=== PATIENT | female | born 1985 | race Hispanic/Latino ===

== ENCOUNTER 2020-01-02 11:54 | Day surgery (SDC) | payer OTHER ==
--- NOTE | 2020-01-01 16:40 | History and Physical Report ---
History of Present Illness Date of examination: 01/01/20 Chief complaint: retained products of conception History of present illness: 34 yo with known miscarriage presenting for definitive management with D&C for retained products of conception. Denies vaginal bleeding. No further p assage of tissue with cytotec x 3 attempts. Past History Past Medical History: no pertinent history Past Surgical History: no surgical history Family/Genetic History: none Social history: no significant social history - Obstetrical History : 1 Para: 1 Hx # Term Pregnancies: 1 Spontaneous Abortions: 1 Medications and Allergies Allergies Allergy/AdvReac Type Severity Reaction Status Date / Time shrimp Allergy Vomiting Verified 01/01/20 17:01 Home Medications Medication Instructions Recorded Confirmed Last Taken Type No Known Home Medications [No 01/01/20 01/01/20 Unknown History Reported Home Medications] Review of Systems All systems: negative (expect HPI) - Physical Exam Abdomen: Positive: normal appearance, normal bowel sounds Results Result Diagrams: 01/02/20 12:30 01/02/20 12:30 HCG 199.2 All other labs normal. Assessment and Plan - Patient Problems (1) Retained products of conception Current Visit: No Status: Acute Plan to address problem: --To OR for ultrasound guided D&C for retained products of conception --No IUP identified. c/w 2.0 x 1.6 x 2.6 cm mass c/w retained products --Questions solicited and answered --Consented in the chart
[~2020-01-02 11:54] MED LIST: LACTATED RINGERS 1,000 ML IV SCH; MIDAZOLAM 2 MG/2 ML INJ IV NR; SCOPOLAMINE TRANSDERMAL PATCH 72 HR TD NR; ceFAZolin/Water 2 GM/20 ML 2 GM/20 ML SYRINGE IV NR
[2020-01-02] MEDS ORDERED: SILVER NITRATE APPLICATOR 1 EA TP ONE ×2 (12:51→14:30)
[2020-01-02] MEDS ORDERED: METHYLERGONOVINE MALEATE 0.2 MG/ML VIAL IM ONE (12:52)
[2020-01-02 12:53] LABS: Basophils % (Auto) 0.8 % (0.0-1.8); Eosinophils # (Auto) 0.1 K/mm3 (0.0-0.4); Eosinophils % (Auto) 2.3 % (0.0-4.3); Hematocrit 35.4 % (30.3-42.9); Hemoglobin 12.1 gm/dl (10.1-14.3); Lymphocytes # (Auto) 2.1 K/mm3 (1.2-5.4); Lymphocytes % (Auto) 43.3 % (13.4-35.0); Mean Corpuscular HGB Conc 34 % (30-34); Mean Corpuscular Volume 90 fl (79-97); Monocytes # (Auto) 0.3 K/mm3 (0.0-0.8); Monocytes % (Auto) 5.3 % (0.0-7.3); Platelet Count 278 K/mm3 (140-440); Red Blood Count 3.94 M/mm3 (3.65-5.03); Red Cell Distribution Width 13.1 % (13.2-15.2)
[2020-01-02 13:04] LABS: Blood Urea Nitrogen 8 mg/dL (7-17); Calcium 9.3 mg/dL (8.4-10.2); Hemolysis Index 7
[2020-01-02] MEDS ORDERED: ONDANSETRON 4 MG/2 ML INJ IV PRN (13:14)
[2020-01-02] MEDS ORDERED: fentaNYL 100 MCG/2 ML INJ IV PRN (13:14)
--- NOTE | 2020-01-02 13:14 | Anesthesia Day of Surgery ---
Anesthesia Day of Surgery - Day of Surgery Patient Examined: Yes Patient H&P Reviewed: Yes Patient is NPO: Yes
--- NOTE | 2020-01-02 13:14 | Anesthesia Consultation ---
Anesthesia Consult and Med Hx Date of service: 01/02/20 - Airway Anesthetic Teeth Evaluation: Good ROM Head & Neck: Adequate Mental/Hyoid Distance: Adequate Mallampati Class: Class II Intubation Access Assessment: Probably Good - Pulmonary Exam CTA: Yes - Cardiac Exam Cardiac Exam: RRR - Pre-Operative Health Status ASA Pre-Surgery Classification: ASA2 Proposed Anesthetic Plan: General - Pulmonary Hx Smoking: Yes (former smoker) Hx Respiratory Symptoms: No - Cardiovascular System Hx Hypertension: No - Central Nervous System CVA: No - Gastrointestinal Hx Gastroesophageal Reflux Disease: No - Endocrine Hx Renal Disease: No Hx Liver Disease: No Hx Insulin Dependent Diabetes: No Hx Non-Insulin Dependent Diabetes: No Hx Thyroid Disease: No - Hematic Hx Anemia: No - Other Systems Hx Obesity: No - Additional Comments Anesthesia Medical History Comments: D&C for retained products of conception. No N/V.
[2020-01-02 13:16] LABS: BUN/Creatinine Ratio 13
[2020-01-02] MEDS ORDERED: KETOROLAC 30 MG/1 ML INJ ONE (14:12)
[2020-01-02] MEDS ORDERED: dexAMETHasone 20 MG/5 ML VIAL ONE (14:12)
[2020-01-02] MEDS ORDERED: ONDANSETRON 4 MG/2 ML INJ ONE (14:12)
[2020-01-02] MEDS ORDERED: fentaNYL 100 MCG/2 ML INJ ONE (14:12)
[2020-01-02] MEDS ORDERED: propofoL 200 MG/20 ML VIAL IV ONE (14:22)
[2020-01-02] MEDS ORDERED: OXYTOCIN 10 UNIT/1 ML INJ ONE (14:27)
[2020-01-02] MEDS ORDERED: FERRIC SUBSULFATE TOPICAL SOLN 8 ML TP ONE ×2 (14:30)
[2020-01-02] MEDS ORDERED: SODIUM CHLORIDE 0.9% IRR 1,500 ML BOTTLE IR ONE (14:30)
[2020-01-02] MEDS ORDERED: oxyCODONE /ACETAMINOPHEN 5-325MG TAB PO PRN (14:47)
[2020-01-02] MEDS ORDERED: IBUPROFEN 600 MG TAB PO PRN (14:47)
--- NOTE | 2020-01-02 14:47 | Procedure Note ---
Date of procedure: 01/02/20 Pre-op diagnosis: retained products of conception Post-op diagnosis: same Procedure: Preoperative diagnosis: 1. Retained products of conception Postoperative diagnosis: 1. Same Operation performed: 1. Dilation & curettage Surgeon: Daniel Mcdonald Anesthesia: General EBL: 200cc UOP: 25cc IVF 1000cc Pathology specimens: products of conception Complications: none Disposition and condition: To the PACU in stable condition then discharged home Findings: 1. 8-10 week size mobile uterus 2. Moderate amount of products of conception Statement of medical necessity: 34 yo A1 woman who presents with retained products of conception, failed medical management. She desired surgical management. The procedure risk benefits, indications and alternatives reviewed patient. Description of operation: After informed consent, the patient was taken to the O R and placed in Nura stirrups after general anesthesia was administered. An exam under anesthesia was performed with the findings noted above. The vagina was prepped and draped in the usual sterile fashion. Did not catheterization of the bladder was performed. A duckbill speculum was placed to visualize the cervix. A single-tooth tenaculum was placed onto the anterior cervical lip. Serial dilation of the cervix with Mancia dilators was performed. The uterus was gently sounded to 10 centimeters. Suction was calibrated to 60 mmHg, and a 12 millimeters curette was gently advanced into the uterine cavity fundus. Suction was applied, and the curette was rotated to evacuate the uterus of products of conception. A sharp curettage was performed until a gritty texture was noted. Suction curettage was repeated to clear the remaining products of conception. Minimal bleeding was noted. Ultrasound was used before and after procedure to confirm the evacuation of uterine contents. The tenaculum was removed from the cervix with good hemostasis noted after silver nitrate, Monsel's paste, 3-0 Vicryl. The speculum was removed. Patient tolerated the procedure well and was taken to recovery room in good condition and then discharged home. Anesthesia: GETA Surgeon: DANIEL MCDONALD JR Estimated blood loss: other (200cc) IV fluids: 1,000 Urine output: 25 Pathology: list (products of conception) Specimen disposition: to lab Condition: stable Disposition: same day
--- NOTE | 2020-01-02 15:50 | Post Anesthesia Evaluation ---
- Post Anesthesia Evaluation Patient Participated: Yes Airway Patent: Yes Stable Respiratory Function: Yes Nausea/Vomiting: No Temp > 96.8F: Yes Pain Manageable: Yes Adequeate Hydration: Yes Anesthesia Complications: No
[2020-01-02 16:03] VITALS: BP 106/68
--- NOTE | 2020-01-02 17:24 | Ultrasound Report ---
CLINICAL DATA: d c TECHNICAL DATA: Ultrasound, pelvic (nonobstetric), real-time with image documentation; transabdominal FINDINGS: The uterus is of normal size and echogenicity. There are no uterine masses. Endometrial thickness is 1.9 cm pre-D&C and 0.8 cm post D &C The right and left ovaries were not all imaged IMPRESSION: Pelvis ultrasound as noted GUIDELINES FOR IMAGING OF OVARIAN--ADNEXAL CYST: WOMEN OF REPRODUCTIVE AGE: 1. Cysts <=3 cm: Normal physiologic findings; at the discretion of the interpreting physician whether or not to describe them in the imaging report; do not need follow-up. 2. Cysts >3 and <=5 cm: Should be described in the imaging report with a statement that they are almo st certainly benign; do not need follow-up. 3. Cysts >5 and <=7 cm: Should be described in the imaging report with a statement that they are almo st certainly benign; yearly follow-up with US recommended. 4. Cysts >7 cm: Since these may be difficult to assess completely with US, further imaging with magne tic resonance (MR) or surgical evaluation should be considered. POSTMENOPAUSAL WOMEN: 1. Cysts <=1 cm: Are clinically inconsequential; at the discretion of the interpreting physician whet her or not to describe them in the imaging report; do not need follow-up. 2. Cysts >1 and <=7 cm: Should be described in the imaging report with statement that they are almost certainly benign; yearly follow-up, at least initially, with US recommended. Some practices may opt to increase the lower size threshold for follow-up from 1 cm to as high as 3 cm. One may opt to kem nue follow-up annually or to decrease the frequency of follow-up once stability or decrease in size h as been confirmed. Cysts in the larger end of this range should still generally be followed on a regu lar basis. 3. Cysts >7 cm: Since these may be difficult to assess completely with US, further imaging with MR or surgical evaluation should be considered. Signer Name: Jesús Salvador MD Signed: 01/02/2020 5:19 PM Workstation Name: [id number]
== END 2020-01-02 11:55 | disposition home or self-care (01) ==
LOC: OR 11:54
PROVIDERS: ATTEND Obstetrics & Gynecology
DX: O02.89 Other abnormal products of conception (principal); O03.4 Incomplete spontaneous abortion without complication; Z91.013 Allergy to seafood; Z87.891 Personal history of nicotine dependence
CPT/HCPCS: 36415; 59812; 76857; 80048; 84702; 85025; 86850; 86900; 86901; 88305; J0690; J1100; J1885; J2250; J2405; J2590; J2704; J3010; J7120; J2210